=== PATIENT | female | born 1995 | race Caucasian/White ===

== ENCOUNTER 2018-08-30 | Emergency (ER) | payer MEDICAID, OTHER ==
[2018-08-30 01:12] LABS: URINE PH (Dip) POC 5.5 (5.0-8.5)
[2018-08-30 01:12] LABS: URINE BLOOD (Dip) POC 3+ (NEGATIVE); URINE GLUCOSE (Dip) POC Negative (NEGATIVE); URINE KETONES (Dip) POC Trace (NEGATIVE); URINE LEUKOCYTE EST (Dip) POC 1+ (NEGATIVE); URINE NITRITE (Dip) POC Negative (NEGATIVE); URINE TOTAL PROTEIN POC 1+ (NEGATIVE)
== END 2018-08-30 01:44 | disposition home or self-care (01) ==
LOC: FTE
DX: N39.0 Urinary tract infection, site not specified (principal)
CPT/HCPCS: 81003; 81025; 99282